=== PATIENT | female | born 1990 | race Caucasian/White ===

== ENCOUNTER 2020-01-15 04:58 | Emergency (ER) | payer BC ==
[~2020-01-15] VITALS: Ht 170.2 cm; Wt 63.5 kg
[2020-01-15] MEDS ORDERED: YAZ 28 TABLET1 EACH PO (05:13)
[2020-01-15] MEDS ORDERED: ZOFRAN4 MG PO (07:03)
[2020-01-15] MEDS ORDERED: NORCO 5-325 TA1 EACH PO (07:03)
== END 2020-01-15 07:22 | disposition home or self-care (01) ==
LOC: ED 04:58
DX: N13.2 Hydronephrosis with renal and ureteral calculous obstruction (principal)
CPT/HCPCS: 74176; 80053; 81001; 84703; 85025; 96374; 96375; 99284-25; J1170; J1885; J2405; J7030

== ENCOUNTER 2022-04-03 23:00 | Inpatient (IN) | payer BC ==
[~2022-04-03] VITALS: Ht 170.2 cm; Wt 75.8 kg
[~2022-04-03 23:00] MED LIST: NORCO 5-325 TA1 EACH PO; YAZ 28 TABLET1 EACH PO; ZOFRAN4 MG PO
--- NOTE | 2022-04-05 07:09 | PR ---
[facility] [address] [place], [place] [address] Signed PP Progress Notes Datetime Report Generated by CPN: 04/05/2022 07:09 SUBJECTIVE: [id number] Pain: Within Normal Limits Nausea/Vomiting: Denies Flatus: Yes Bowel Movement: No Vital Signs: [id number] Vital Signs: Reviewed; Within Normal Limits Cardiovascular: Normal Respiratory: Normal Abdomen/Uterus: Normal Lochia: Normal Vulva/Perineum: Not Done Breasts: Not Done CVA Tenderness: Not Done Extremities: Normal Incision: Not Applicable Progress: Normal Exam Comments: Fundus firm U-2 nontender IMPRESSION/PLAN/PROCEDURES: [id number] Impression: Normal Progression Plan: Discharge Progress Notes: Pt seen and examined. Doing well. Ambulating, voiding, and tolerating full diet. Pain and lochia minimal. well. No fevers/chills or other concerns. Desires d/c home. Undecided on contraception. F/U 2 wks, sooner if needed. Reviewed d/c instructions in detail Signing Physician: Hina Orr DO Copies: ~ *Electronically Signed* 04/05/22 0709 HINA ORR DO PATIENT NAME: FRENCH KEENAN PROGRESS NOTE DATE OF : 88 PHYSICIAN: HINA ORR DO RPT #: [id number] REPORT IS CONFIDENTIAL AND NOT TO BE RELEASED WITHOUT AUTHORIZATION
== END 2022-04-05 12:15 | disposition home or self-care (01) | DRG 807 ==
LOC: FBCO 23:00 → FBC 23:49
PROVIDERS: ADMIT Obstetrics & Gynecology; ATTEND Obstetrics & Gynecology
PROC: 10E0XZZ Delivery of Products of Conception, External Approach (ICD-10-PCS; principal; 2022-04-04)
PROC: 10907ZC Drainage of Amniotic Fluid, Therapeutic from Products of Conception, Via Natural or Artificial Opening (ICD-10-PCS; 2022-04-04)
PROC: 3E0R3BZ Introduction of Anesthetic Agent into Spinal Canal, Percutaneous Approach (ICD-10-PCS; 2022-04-04)
PROC: 00HU33Z Insertion of Infusion Device into Spinal Canal, Percutaneous Approach (ICD-10-PCS; 2022-04-04)
PROC: 0HQ9XZZ Repair Perineum Skin, External Approach (ICD-10-PCS; 2022-04-04)
DX: O69.1XX0 Labor and delivery complicated by cord around neck, with compression, not applicable or unspecified (principal); Z37.0 Single live birth; O70.0 First degree perineal laceration during delivery; Z20.822 Contact with and (suspected) exposure to COVID-19; Z3A.37 37 weeks gestation of pregnancy; Z87.442 Personal history of urinary calculi; Z79.899 Other long term (current) drug therapy; Z79.2 Long term (current) use of antibiotics
CPT/HCPCS: 36415; 85027; 86850; 86900; 86901; 87502; A9270; C9803; J2590; J2795; J3010; J7121; U0003